=== PATIENT | female | born 1995 | race African-American/Black ===

== ENCOUNTER 2017-02-03 16:45 | Emergency (ER) | payer SELFPAY ==
[~2017-02-03] VITALS: Ht 157.5 cm; Wt 64.0 kg
[2017-02-03 17:00] VITALS: BP 129/71
--- NOTE | 2017-02-03 17:12 | ED.ADGEN ---
Adult General Chief Complaint Chief Complaint: TEST [facility] HPI Patient is a 21 year old G2, P1, -[place] female with positive test with estimated gestational age of 14 weeks presents to the ED with request for confirmatory ultrasound. Patient denies any vaginal bleeding, abdominal pain or cramping. She states she was advised to get an ultrasound to determine dates. Patient does not currently have an OB recently relocated from [place], [place]. Review of Systems Review of Systems ROS as per HPI. Physical Exam Physical Exam Constitutional: Well developed, well nourished, no acute distress, non-toxic appearance. [] HENT: Normocephalic, atraumatic, bilateral external ears normal, oropharynx moist, no oral exudates, nose normal. [] Eyes: PERRLA, EOMI, conjunctiva normal, no discharge. [] Neck: Normal range of motion, no tenderness, supple, no stridor. [] Cardiovascular:Heart rate regular rhythm, no murmur [] Lungs & Thorax: Bilateral breath sounds clear to auscultation [] Abdomen: Bowel sounds normal, soft, but abdomen with uterus palpated above pelvis. Skin: Warm, dry, no erythema, no rash. [] Back: No tenderness, no CVA tenderness. [] Current Patient Data Vital Signs Vital Signs Date Time Temp Pulse Resp B/P (MAP) Pulse Ox O2 Delivery O2 Flow Rate FiO2 02/03/17 17:00 98.1 80 17 129/71 (90) 100 Room Air 98.1 Lab Values Laboratory Tests Test 02/03/17 16:07 POC Urine HCG, Qualitative Hcg positive (Negative) EKG EKG [] Radiology/Procedures Radiology/Procedures [] Course & Med Decision Making Course & Med Decision Making Pertinent Labs and Imaging studies reviewed. (See chart for details) [Bedside ultrasound performed to confirm activity and heart tones. He is able exam is consistent with dates of 14 weeks or less. Patient referred to [facility]. ] Dragon Disclaimer Dragon Disclaimer This electronic medical record was generated, in whole or in part, using a voice recognition dictation system. ЕКАТЕРИНА ARZATE DO Feb 03, 2017 17:12
== END 2017-02-03 19:15 | disposition home or self-care (01) ==
LOC: ER 16:45
DX: Z34.81 Encounter for supervision of other normal pregnancy, first trimester (principal)
CPT/HCPCS: 81025; 99284

== ENCOUNTER 2017-08-04 16:40 | Observation (INO) | payer OTHER ==
[~2017-08-04] VITALS: Ht 160 cm; Wt 74.4 kg
[2017-08-04] MEDS ORDERED: hydrOXYzine IM 50 MG/ML VIAL IM ONE (18:30)
== END 2017-08-04 20:51 | disposition home or self-care (01) ==
LOC: 3 SO LND 16:40
PROVIDERS: ADMIT Obstetrics & Gynecology; ATTEND Obstetrics & Gynecology
DX: O62.9 Abnormality of forces of labor, unspecified (principal); O36.8130 Decreased fetal movements, third trimester, not applicable or unspecified; Z3A.31 31 weeks gestation of pregnancy
CPT/HCPCS: 96372; G0378; G0379; J3410